=== PATIENT | female | born 1985 | race Caucasian/White ===

== ENCOUNTER 2017-06-25 06:06 | Inpatient (IN) | payer OTHER ==
[2017-06-25] MEDS ORDERED: ceFAZolin IN SWFI 2 GM/20 ML SYRINGE IVP ONE (06:20)
[2017-06-25] MEDS ORDERED: METHYLERGONOVINE 0.2 MG/ML 1 ML AMP IM PRN (06:20)
[2017-06-25] MEDS ORDERED: OXYTOCIN 10 UNIT/ML 1 ML VIAL IM PRN (06:20)
[2017-06-25] MEDS ORDERED: CARBOPROST TROMETHAMINE 250 MCG/ML 1 ML AMP IM PRN (06:20)
[2017-06-25] MEDS ORDERED: LIDOCAINE 1% (PF) 10 MG/ML (30 ML SDV) SQ PRN (06:20)
[2017-06-25] MEDS ORDERED: TERBUTALINE 1 MG/ML VIAL SQ PRN (06:20)
[2017-06-25 06:39] VITALS: BMI 30.1
[2017-06-25] MEDS: LACTATED RINGERS 1,000 ML IV SCH ×5 (06:40→20:48)
[2017-06-25 06:47] LABS: Basophils % (A) 0 %; Eosinophils # (A) 0.1 k/uL (0-0.7); Eosinophils % (A) 1 %; HCT 35.3 % (34.0-46.0); HGB 12.3 gm/dL (11.4-16.0); Lymphocytes # (A) 1.5 k/uL (1.0-4.8); Lymphocytes % (A) 19 %; MCH 30.9 pg (25.0-35.0); MCHC 34.9 g/dL (31.0-37.0); MCV 88.4 fL (80.0-100.0); Mean Platelet Volume 9.1; Monocytes # (A) 0.4 k/uL (0-1.0); Monocytes % (A) 5 %; Neutrophils # (A) 5.7 k/uL (1.3-7.7); Neutrophils % (A) 72 %; Platelet Count 187 k/uL (150-450); RBC 3.99 m/uL (3.80-5.40); RDW 13.5 % (11.5-15.5); WBC 7.9 k/uL (3.8-10.6)
[2017-06-25] MEDS ORDERED: CITRIC ACID-SODIUM CITRATE 15 ML CUP PO ONE (07:24)
[2017-06-25] MEDS ORDERED: NALBUPHINE 10 MG/ML AMPUL ONE (07:57)
[2017-06-25] MEDS ORDERED: OXYTOCIN 10 UNIT/ML 1 ML VIAL ONE (07:57)
[2017-06-25] MEDS ORDERED: ePHEDrine 50 MG/ML 1 ML AMP ONE (07:57)
[2017-06-25] MEDS ORDERED: MORPHINE SULFATE (PF) 0.3 MG/0.3 ML SYR ONE (07:57)
[2017-06-25] MEDS ORDERED: PHENYLEPHRINE-0.9% NACL SYG 1 MG/10 ML SYRINGE ONE (07:57)
[2017-06-25] MEDS ORDERED: ONDANSETRON 4 MG/2 ML VIAL ONE (07:57)
[2017-06-25] MEDS ORDERED: diphenhydrAMINE 50 MG/ML 1 ML VIAL IVP PRN ×3 (08:25→08:53)
[2017-06-25] MEDS ORDERED: ONDANSETRON 4 MG/2 ML VIAL IVP PRN (08:25)
[2017-06-25] MEDS ORDERED: MORPHINE SULFATE 4 MG/0.8 ML SYRINGE (INJ) IVP PRN (08:25)
[2017-06-25] MEDS ORDERED: NALOXONE 0.4 MG/ML 1 ML VIAL IV PRN ×2 (08:25→08:53)
--- NOTE | 2017-06-25 08:48 | P.HPOB ---
History of Present Illness H&P Date: 06/25/17 Chief Complaint: Breech This is a 32-year-old white female 3 para 0020 EDC 06/28/2017 at 39-4/7 weeks' gestation. Patient was seen in the office yesterday and baby was noted to be in breech presentation. Options of version was discussed and declined. Patient consented to primary low transverse section this morning. She denies fluid leakage or vaginal bleeding. Fetus is been active throughout the . history is significant for blood type A positive, rubella status immune. VDRL testing, hepatitis B surface antigen, HIV testing, group B strep cultures, urine culture all negative. One-hour Glucola 129. Pap smear negative. Social history patient is , she is a previous smoker, she denies alcohol or drug use with the . Past medical history is significant for irritable bowel syndrome. Past surgical history wisdom teeth extracted. Current medications vitamin daily, Zyrtec as needed. ALLERGIES none known. On exam this is a pleasant white female, she is 5 foot 5 inches, 181 pounds, blood pressure 123/77. Vital signs are stable and the patient is afebrile. The general physical exam is within normal limits. The breech is confirmed at the bedside with ultrasound, head in the left upper quadrant. heart tones consistent with reactive NST. Extremities negative for edema. Chest clear in all meneses. Impression: 39-4/7 weeks intrauterine , breech presentation, declining option for version. Here for primary low transverse section. Plan: Antibiotics per hospital protocol. We will proceed with primary low transverse section. Review of Systems Constitutional: Reports as per HPI Past Medical History Additional Past Medical History / Comment(s): hypoglycemia, IBS History of Any Multi-Drug Resistant Organisms: None Reported Additional Past Surgical History / Comment(s): [place] teeth removed. Past Anesthesia/Blood Transfusion Reactions: No Reported Reaction Past Psychological History: No Psychological Hx Reported Smoking Status: Never smoker - Past Family History Mother Family Medical History: No Reported History Medications and Allergies Home Medications Medication Instructions Recorded Confirmed Type Pnv No.95/Ferrous Fum/Folic AC 1 tab PO DAILY 06/25/17 06/25/17 History [ Multivitamin Tablet] Allergies Allergy/AdvReac Type Severity Reaction Status Date / Time No Known Allergies Allergy Verified 06/25/17 06:18 Exam - Vital Signs Vital signs: Vital Signs Temp Pulse Resp BP 06/25/17 06:17 97.0 F L 77 16 123/77 Intake and Output 06/24/17 06/25/17 06/25/17 22:59 06:59 14:59 Output Total 300 Balance -300 Output: Urine 300 Other: Weight 82.1 kg See dictation please Results Result Diagrams: 06/25/17 06:25 Assessment and Plan Plan: Primary low transverse section. All risks benefits and alternatives discussed. All questions answered. Time with Patient: Less than 30
[2017-06-25] MEDS ORDERED: diphenhydrAMINE 25 MG CAP PO PRN (08:53)
[2017-06-25] MEDS ORDERED: diphenhydrAMINE 50 MG CAP PO PRN (08:53)
[2017-06-25] MEDS ORDERED: METOCLOPRAMIDE 5 MG/ML 2 ML VIAL IVP PRN (08:53)
[2017-06-25] MEDS ORDERED: ZOLPIDEM 5 MG TAB PO PRN (08:53)
[2017-06-25] MEDS ORDERED: ACETAMINOPHEN TAB 325 MG TAB PO PRN (08:53)
--- NOTE | 2017-06-25 08:53 | P.OP ---
Date of Procedure: 06/25/17 Preoperative Diagnosis: Breech presentation, 39-4/7 weeks intrauterine Postoperative Diagnosis: Liveborn male , breech presentation, nuchal cord 1, fibroid uterus Procedure(s) Performed: Primary low transverse section Anesthesia: spinal Surgeon: Florina Cavazos Beam Dyer Operator #1: Indy Abebe Estimated Blood Loss (ml): 600 IV fluids (ml): 800 Urine output (ml): 300 Pathology: none sent Condition: stable Disposition: PACU Description of Procedure: Patient is brought to the operating suite where a spinal with Duramorph is placed without difficulty. She is placed in the dorsal supine position with left lateral uterine displacement. Rodriguez catheter has been placed to direct drainage. Antibiotics given. The appropriate timeout is performed to assure proper patient and procedural identification. The abdomen is prepped and draped in usual sterile fashion. The analgesia is checked and noted to be adequate. A low transverse skin incision is made in this is carried down through the subcutaneous tissue which is approximately 3 cm deep. Fascia is isolated, scored and extended bilaterally with curved Izaguirre scissors. Peritoneum is next identified and incised. There is no bowel or bladder involvement. Bladder blade is placed over the dome of the bladder and at all times the bladder is Well from the operative field to avoid bladder and/or ureteral injury. A low transverse uterine incision is made in this is carried down through the myometrium. Artificial amniorrhexis reveals lightly stained meconium fluid. The uterine incision is extended bluntly. The infant is delivered in the double footling breech position. The extremities are brought through the incision and the sacrum is turned anterior. At this time a blue towel was wrapped around the trunk of the baby. The arms are delivered with a Pinard maneuver, with 180 rotation for the opposite upper extremity. The head is delivered in a flexed position. There is a nuchal cord 1 that is noted. The oropharynx, nasopharynx, and external nares are bulb suctioned. Patient is officially delivered of a liveborn male at 0817 hours. Umbilical cord is doubly clamped and ligated, he is handed to waiting nurses for evaluation where scores of 9 and 9 at one and 5 minutes respectively are given. The placenta is delivered manually, it is inspected and noted to be intact with trivascular cord at 0818 hours. The uterus is then swept clean with a sterile sponge to avoid any retained products of conception. It is externalized and massaged. Oxytocin is given. In inspecting the uterus several fibroids are noted, especially on the right aspect and near the cornual region. Ovaries and tubes appear normal. Uterus is closed in a two-step fashion, first layer running locking, second layer imbricated. Excellent hemostasis and reapproximation is noted. The abdomen is suctioned with suction on guard and the uterus is gently placed back into the abdominal cavity. Bilateral gutters are inspected and cleaned. The surgical field is clean and dry. Peritoneum was allowed to close by secondary intention. Fascia is closed in a running stitch of 0 Vicryl with over ligation in the Center. The abdominal incision is then irrigated, noted to be clean and dry. Subcutaneous tissue is reapproximated using 3-0 Vicryl in a running fashion. 4-0 undyed Monocryl is used for final skin closure in a subcuticular manner. Steri-Strips and Mastisol are applied to the wound. Uterus is massaged for a small amount of bleeding. Total estimated blood loss 600 mL's. All sponge needle and enhancement counts are correct at the end of the procedure. Patient is brought back to recovery room in excellent condition with stable vital signs including blood pressure 114/57, pulse 95, 99% O2 saturation. weighed 3150 g or 6 lbs. 15 oz. Patient is requesting circumcision for her son.
[2017-06-25] MEDS: KETOROLAC 30 MG/ML 1 ML VIAL IVP SCH ×3 (18:29→19:45)
[2017-06-25] MEDS: SENNOSIDES-DOCUSATE SODIUM 1 EACH TAB PO SCH (19:45)
[2017-06-26] MEDS: LACTATED RINGERS 1,000 ML IV SCH (02:43)
[2017-06-26] MEDS: KETOROLAC 30 MG/ML 1 ML VIAL IVP SCH ×3 (04:30→17:39)
--- NOTE | 2017-06-26 08:16 | P.PN ---
Progress Note - Text Date: 06/26/2017 Time: 716 The patient is status post section Vital signs stable VAS: 0-10 Patient has no complaints of pain. The patient incurred some minimal itching yesterday, this itching is now subsiding. Pain meds to be managed by service.
[2017-06-26] MEDS ORDERED: ONDANSETRON 4 MG/2 ML VIAL IVP PRN (08:53)
[2017-06-26] MEDS: SENNOSIDES-DOCUSATE SODIUM 1 EACH TAB PO SCH ×2 (09:07→20:51)
[2017-06-26 09:29] LABS: Basophils % (A) 0 %; Eosinophils # (A) 0.1 k/uL (0-0.7); Eosinophils % (A) 0 %; HCT 31.3 % (34.0-46.0); HGB 10.9 gm/dL (11.4-16.0); Lymphocytes # (A) 0.9 k/uL (1.0-4.8); Lymphocytes % (A) 8 %; MCH 30.8 pg (25.0-35.0); MCHC 34.9 g/dL (31.0-37.0); MCV 88.3 fL (80.0-100.0); Mean Platelet Volume 9.3; Monocytes # (A) 0.4 k/uL (0-1.0); Monocytes % (A) 4 %; Neutrophils # (A) 9.1 k/uL (1.3-7.7); Neutrophils % (A) 86 %; Platelet Count 173 k/uL (150-450); RBC 3.55 m/uL (3.80-5.40); RDW 13.6 % (11.5-15.5); WBC 10.6 k/uL (3.8-10.6)
--- NOTE | 2017-06-26 11:00 | P.PN ---
Subjective Progress Note Date: 06/26/17 Principal diagnosis: Postoperative day #1 Slept well. Positive flatus. Pain well managed. Objective - Vital Signs Vital signs: Vital Signs Temp 97.6 F 06/26/17 09:00 Pulse 76 06/26/17 09:00 Resp 17 06/26/17 09:00 BP 111/68 06/26/17 09:00 Pulse Ox 97 06/26/17 09:00 Intake & Output 06/25/17 06/26/17 06/26/17 18:59 06:59 18:59 Intake Total 1200 Output Total 6300 2000 1000 Balance -6300 -800 -1000 Intake: Oral 1200 Output: Urine 6300 2000 1000 Straight 1500 Uretheral (Rodriguez) 2000 Other: # Voids 1 1 - Constitutional General appearance: Present: average body habitus, cooperative - EENT Eyes: Present: PERRLA ENT: Present: hearing grossly normal - Neck Neck: Present: normal ROM Thyroid: bilateral: normal size - Respiratory Respiratory: bilateral: CTA - Cardiovascular Rhythm: regular - Gastrointestinal General gastrointestinal: Present: normal bowel sounds - Genitourinary Genitourinary Comment(s): Abdominal incision clean and dry, intact, well approximated. Fundus firm, midline, symmetric, nontender. - Integumentary Integumentary: Present: normal - Neurologic Neurologic: Present: CNII-XII intact - Musculoskeletal Musculoskeletal: Present: gait normal, strength equal bilaterally - Psychiatric Psychiatric: Present: A&O x's 3, appropriate affect, intact judgment & insight - Labs CBC & Chem 7: 06/26/17 08:47 Labs: Abnormal Lab Results - Last 24 Hours (Table) 06/26/17 Range/Units 08:47 RBC 3.55 L (3.80-5.40) m/uL Hgb 10.9 L (11.4-16.0) gm/dL Hct 31.3 L (34.0-46.0) % Neutrophils # 9.1 H (1.3-7.7) k/uL Lymphocytes # 0.9 L (1.0-4.8) k/uL Assessment and Plan Plan: Advance diet and activity. Continue care. Possible discharge home tomorrow. Time with Patient: Less than 30
[2017-06-26] MEDS: HYDROcodone/APAP 5-325MG 1 EACH TAB PO PRN (20:50)
[2017-06-27] MEDS: IBUPROFEN 600 MG TAB PO PRN ×2 (00:24→12:59)
[2017-06-27] MEDS: HYDROcodone/APAP 5-325MG 1 EACH TAB PO PRN ×2 (03:13→09:36)
[2017-06-27 07:30] VITALS: BP 101/60; PULSE 72; RESP 16; TEMP 97.3
[2017-06-27] MEDS: SENNOSIDES-DOCUSATE SODIUM 1 EACH TAB PO SCH (07:35)
--- NOTE | 2017-06-27 09:17 | P.DS ---
Providers Date of admission: 06/25/17 06:06 Expected date of discharge: 06/27/17 Attending physician: Florina Cavazos Primary care physician: [facility] Course: This is a 32-year-old white female 3 para 0020 EDC 06/28/2017 at 39-4/7 weeks' gestation. Patient presented for primary low transverse section for breech presentation, declining option of version. has been otherwise unremarkable, group B strep cultures negative, 1 type A+, rubella status immune. Please see dictated history and physical for details. Patient was admitted and underwent a low-transverse section, she gave to a liveborn male infant with scores of 9 and 9 at one and 5 minutes respectively. There were fibroids noted in the uterus, patient requested and received her placenta postoperatively. weighed 3150 g or 6 lbs. 15 oz., please see dictated operative note for details. This morning the patient is doing well. She is voiding, ambulating and passing flatus without difficulty. Vital signs are stable and she is afebrile. Circumcision has been performed. The patient's incision is clean and dry, intact, Steri-Strips well approximated. Fundus is firm and in the midline, mobile and 18 week size. Pain is well tolerated with Motrin products. Patient being discharged home in very good condition. She'll follow-up with me in the office in 2 weeks. I have reminded her no intercourse, tampons or douching. She will use [id number] ibuprofen products as needed for pain, 200 mg pills, 3 every 6 hours when necessary. She will call me with any fevers shakes or chills, foul smelling or copious lochia, with the passage of large blood clots, with any pain not alleviated by [id number] products, or indeed with any concerns. Patient Condition at Discharge: Good Plan - Discharge Summary New Discharge Prescriptions: No Action Pnv No.95/Ferrous Fum/Folic AC [ Multivitamin Tablet] 1 tab PO DAILY Discharge Medication List Pnv No.95/Ferrous Fum/Folic AC [ Multivitamin Tablet] 1 tab PO DAILY [History] Follow up Appointment(s)/Referral(s): Florina Cavazos MD [STAFF PHYSICIAN] - 2 Weeks Discharge Disposition: HOME SELF-CARE
== END 2017-06-27 12:53 | disposition home or self-care (01) | DRG 766 ==
LOC: 4FBP 06:06
PROVIDERS: ADMIT Obstetrics & Gynecology; ATTEND Obstetrics & Gynecology
PROC: 10D00Z1 Extraction of Products of Conception, Low, Open Approach (ICD-10-PCS; principal; 2017-06-25 07:57)
DX: O32.1XX0 Maternal care for breech presentation, not applicable or unspecified (principal); Z37.0 Single live birth; D25.9 Leiomyoma of uterus, unspecified; O34.13 Maternal care for benign tumor of corpus uteri, third trimester; O69.81X0 Labor and delivery complicated by cord around neck, without compression, not applicable or unspecified; Z3A.39 39 weeks gestation of pregnancy; Z87.891 Personal history of nicotine dependence
CPT/HCPCS: 85025